=== PATIENT | male | born 1995 | race American Indian/Alaskan Native ===

== ENCOUNTER 2019-11-08 20:16 | Emergency (ER) | payer SELFPAY ==
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
--- NOTE | 2019-11-08 21:42 | XRay Report ---
Right hand 3 views INDICATION: Right hand pain following injury IMPRESSION: There is a slightly comminuted fracture involving the distal aspect of the index finger p roximal phalanx with moderate overlying laceration. Signer Name: Jere Temple MD Signed: 11/08/2019 9:37 PM Workstation Name: [id number]
[2019-11-08] MEDS ORDERED: IBUPROFEN 800 MG TAB PO ONE (22:16)
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
[2019-11-08] MEDS ORDERED: DIPHtheria,PERTUSSIS(ACELL),TETANUS VACCINE/PF 0.5 ML VIAL IM ONE (22:17)
[2019-11-08] MEDS ORDERED: CLINDAMYCIN 300 MG CAP PO ONE (22:51)
[2019-11-09 01:42] VITALS: BP 126/84
== END 2019-11-08 23:30 | disposition home or self-care (01) ==
LOC: ED 20:16
DX: S62.610A Displaced fracture of proximal phalanx of right index finger, initial encounter for closed fracture (principal); S61.411A Laceration without foreign body of right hand, initial encounter; W45.8XXA Other foreign body or object entering through skin, initial encounter; Y93.89 Activity, other specified; Y92.89 Other specified places as the place of occurrence of the external cause; Y99.8 Other external cause status
CPT/HCPCS: 90471; 90715

== ENCOUNTER 2019-11-19 09:27 | Emergency (ER) | payer OTHER ==
[2019-11-19 09:44] VITALS: BP 123/77
--- NOTE | 2019-11-19 11:38 | Emergency Department Report ---
Suture/Staple Removal - HPI Chief Complaint: Wound/Laceration Stated Complaint: REMOVE STICHES Time Seen by Provider: 11/19/19 11:32 When Sutures or Tom Placed: 8-10 Days Ago Wound Location: On the right palm ED Review of Systems ROS: Stated complaint: REMOVE STICHES Other details as noted in HPI Comment: All other systems reviewed and negative ED Past Medical Hx - Past Medical History Previous Medical History?: No - Surgical History Past Surgical History?: No - Social History Smoking Status: Current Every Day Smoker Substance Use Type: Marijuana - Medications Home Medications: Home Medications Medication Instructions Recorded Confirmed Last Taken Type Clindamycin [Clindamycin CAP] 300 mg PO Q8H 10 Days #30 cap 11/08/19 Unknown Rx Ibuprofen [Motrin 800 MG tab] 800 mg PO Q8HR PRN #30 tablet 11/08/19 Unknown Rx Suture Removal Exam - Exam General: Vital signs noted. No distress. Alert and acting appropriately. Wound: No Pathologic Erythema, No Tenderness, No Drainage, No Pus, No Wound Dehiscence Other Systems: All other systems reviewed and are unremarkable. ED Course Vital Signs 11/19/19 09:42 Temperature 98.3 F Pulse Rate 91 H Respiratory 15 Rate Blood Pressure 123/77 O2 Sat by Pulse 98 Oximetry ED Recheck MDM - Medical Decision Making 3 Sutures removed from the right palm with no problems. Vital signs are normal. Discussed follow-up with primary care physician. Critical care attestation.: If time is entered above; I have spent that time in minutes in the direct care of this critically ill patient, excluding procedure time. ED Disposition Clinical Impression: Encounter for removal of sutures Disposition: DC-01 TO HOME OR SELFCARE Is pt being admited?: No Does the pt Need Aspirin: No Condition: Stable Instructions: Acute Wound Care (ED) Additional Instructions: Make sure to follow up with the primary care physician as discussed. If you have any worsening symptoms or develop new symptoms please return to ED immediately. Referrals: PRIMARY CARE, [Primary Care Provider] - 3-5 Days [facility] [Outside] - 3-5 Days Forms: Work/School Release Form(ED) Time of Disposition: 11:34
== END 2019-11-19 11:38 | disposition home or self-care (01) ==
LOC: ED 09:27
DX: S61.411A Laceration without foreign body of right hand, initial encounter (principal); Z48.02 Encounter for removal of sutures; X58.XXXA Exposure to other specified factors, initial encounter; Y93.89 Activity, other specified; Y92.89 Other specified places as the place of occurrence of the external cause; Y99.8 Other external cause status